=== PATIENT | female | born 1975 | race Caucasian/White ===

== ENCOUNTER 2017-08-08 13:02 | Outpatient (CLI) | payer BC ==
--- NOTE | 2017-08-08 15:41 | MMO ---
BILATERAL SCREENING MAMMOGRAMS: Date: 08/08/17 Comparison made to prior exam from 2016. This patient's mammogram was interpreted with the assistance of computer-aided detection. FINDINGS: Scattered fibroglandular densities. No evidence of mass or distortion. No suspicious calcification. No interval change. Recommend one year follow-up. IMPRESSION: BIRADS 1: Negative POS: APPLE
== END 2017-08-08 13:03 | disposition home or self-care (01) ==
LOC: SCSMAMMO 13:02
PROVIDERS: ATTEND Obstetrics & Gynecology
DX: Z12.31 Encounter for screening mammogram for malignant neoplasm of breast (principal)
CPT/HCPCS: 77067; G0202

== ENCOUNTER 2018-08-29 14:16 | Outpatient (CLI) | payer BC ==
--- NOTE | 2018-08-29 16:01 | MMO ---
BILATERAL SCREENING MAMMOGRAMS 08/29/18 COMPARISON: 08/08/17 and 05/27/16. FINDINGS: There is heterogeneously dense parenchymal pattern which may lower the sensitivity of mammography. Th ere is an oval shaped isodense mass in the central right breast which may have been present on the pr ior exam but is certainly more conspicuous on today's study. No additional dominant mass or suspiciou s grouping of microcalcifications seen in either breast. IMPRESSION: BIRADS 0: Incomplete: Need Additional Imaging Evaluation and/or Prior Mammograms for Comparison Spot compression CC and MLO views right breast in addition to 90 degree mediolateral view are recomme nded for further evaluation. Ultrasound exam should also be scheduled if needed. POS: APPLE
== END 2018-08-29 14:17 | disposition home or self-care (01) ==
LOC: SCSMAMMO 14:16
PROVIDERS: ATTEND Obstetrics & Gynecology
DX: Z12.31 Encounter for screening mammogram for malignant neoplasm of breast (principal)
CPT/HCPCS: 77067

== ENCOUNTER 2018-09-10 10:31 | Outpatient (CLI) | payer BC ==
--- NOTE | 2018-09-10 14:00 | ULT ---
RIGHT BREAST DIAGNOSTIC ULTRASOUND: INDICATIONS: Follow up right breast mass. FINDINGS: There is a 0.95 x 0.33 x 0.77 cm cyst, corresponding to the right breast mass lesion within the right breast retroareolar location. IMPRESSION: BI-RADS category 2-Benign. The right breast mass lesion corresponds to a simple cyst within the right breast. POS: OFF
== END 2018-09-10 10:32 | disposition home or self-care (01) ==
LOC: BICMAMMO 10:31
PROVIDERS: ATTEND Obstetrics & Gynecology
DX: N63.10 Unspecified lump in the right breast, unspecified quadrant (principal); Z80.3 Family history of malignant neoplasm of breast
CPT/HCPCS: G0279

== ENCOUNTER 2019-03-27 08:21 | Outpatient (CLI) | payer BC ==
--- NOTE | 2019-03-27 08:58 | ULT ---
US Renal Bilateral STANDARD HISTORY: Follow-up of renal cyst. COMPARISON: 04/20/2016 CT examination of the abdomen. FINDINGS: Real-time images of the right and left kidneys were performed. The right kidney measures 11 .8 cm. There is a 1.8 cm midpole right renal cyst which appears to have a thin internal septation. It is difficult to directly compare this to the previous CT as the hypodensity was very vague on the previous CT study it may be minimally increased in size. On the left side a tiny lower pole cyst measuring approximately 9 x 13 mm is present. The left kidney measures 12.3 cm. The bladder is never fully distended. The post void film showed only 2 cc of post void residual. IMPRESSION: 1. No evidence of obstruction of either kidney. The kidneys are normal in size. 2. Small bilateral renal cysts which are complex with some thin internal septations no suspicious fea tures.
[2019-03-27 09:12] LABS: Bilirubin Negative (Negative); Blood, Urine Moderate (Negative); Clarity Slightly Cloudy (Clear); Glucose, Urine (Dipstick) Negative (Negative); Leukocyte Negative (Negative); Nitrite Negative (Negative); Protein, Urine (Dipstick) 30 mg/dL (Neg-Trace); Urobilinogen 0.2 mg/dL (0.2-1.0); pH, Urine 5.5 (5.0-9.0)
[2019-03-27 09:16] LABS: Urine Culture Reflex No No
[2019-03-27 09:25] LABS: Bacteria/HPF 2+ HPF (None Seen); RBC/HPF 0-3 HPF (0-3); WBC/HPF 0-3 HPF (0-3)
[2019-03-27 09:27] LABS: Hyaline Casts/LPF NONE SEEN LPF (0-3 Hyaline)
[2019-03-27 09:33] LABS: Anion Gap 15 mmol/L (10-20); BUN (Urea Nitrogen) 11 mg/dL (7.0-18.7); Calc. Creatinine Clearance 0 mL/min (70-130); Calcium 9.7 mg/dL (7.8-10.44); Carbon Dioxide 24 mmol/L (22-29); Chloride 103 mmol/L (98-107); Estimated GFR-MDRD Greater than 90; Glucose 143 mg/dL (70-105); Potassium 3.8 mmol/L (3.5-5.1); Sodium 138 mmol/L (136-145)
--- NOTE | 2019-03-27 10:52 | RAD ---
ABDOMEN 1 VIEW: HISTORY: Microscopic hematuria. Renal calculi. COMPARISON: CT exam from 04/20/2016. FINDINGS: Visualized bowel gas pattern is nonspecific. Renal outlines within normal limits. No radiopaque sto christina are apparent over the course of either urinary tract. IMPRESSION: No significant abnormalities are demonstrated. POS: CET
== END 2019-03-27 08:22 | disposition home or self-care (01) ==
LOC: SCSULT 08:21
PROVIDERS: ATTEND Urology
DX: N20.0 Calculus of kidney (principal); N28.1 Cyst of kidney, acquired; R31.29 Other microscopic hematuria
CPT/HCPCS: 36415; 74018; 76770; 80048; 81001; 88112